=== PATIENT | male | born 1940 | race Caucasian/White ===

== ENCOUNTER 2020-02-03 03:19 | Emergency (ER) | payer MEDICARE, SELFPAY ==
[2020-02-03 03:28] VITALS: BP 184/88; PULSE 101; RESP 18; TEMP 36.5; O2SAT 96; BMI 23.6
[2020-02-03 03:43] VITALS: BP 102/78; PULSE 82; RESP 16; O2SAT 97
--- NOTE | 2020-02-03 03:46 | W.ED.GENADLT ---
HPI - General Adult General: Chief complaint: General Medical Stated complaint: poss obj stuck in throat Time Seen by Provider: 02/03/20 03:22 Source: patient Mode of arrival: ambulatory Limitations: no limitations History of Present Illness: HPI narrative: Mr. Harris is a nice 80-year-old male who comes in complaining of difficulty swallowing. He states that he has had to have his esophagus dilated in the past secondary to this problem. Tonight he feels like he got some food stuck in his throat almost 12 hours ago and he thought it would pass it this is done numerous times in the past. Patient states that he can handle his own secretions but anytime he tries to drink water or anything else it goes down and he feels it come right back up. He denies any chest pain, shortness of breath or other complaint. Associated symptoms: Reports vomiting; Deny chest pain, confusion, diaphoresis, dyspnea, headache(s), malaise, nausea, rash, palpitations or syncope Review of Systems Const: Denies: fever(s), chills, body aches, fatigue, malaise or diaphoresis Eyes: Denies: change in vision, blurry vision, photophobia, eye discomfort, eye discharge, eye redness or yellow eyes ENMT: Denies: throat pain, odynophagia, hoarseness, swelling of lips/tongue, ear or mastoid pain, ear discharge, change in hearing or nasal discharge Card: Denies: chest pain, palpitations, irregular heart rhythm, edema, lightheadedness, syncope, pre-syncope, dyspnea on exertion or orthopnea Resp: Denies: dyspnea, productive cough, non-productive cough, wheezing, hemoptysis or chest congestion GI: Reports: vomiting; Denies: abdominal pain, nausea, hematemesis, coffee ground emesis, heartburn, diarrhea, constipation, GI cramping, hematochezia or melena : Denies: flank pain, dysuria, urinary frequency, urinary urgency or hematuria Musc: Denies: neck pain, back pain, extremity pain, extremity swelling, joint pain, joint swelling, joint redness, joint warmth or joint stiffness Skin/Breast: Denies: rash, pruritus, erythema, skin pain or skin tenderness Neuro: Denies: headache(s), numbness in extremities, weakness in extremities, sensory changes, lack of coordination, difficulty walking, dizziness, vertigo, confusion, Slurred speech present or seizure-like activity Ashish/Lymph: Denies: easy bruising, easy bleeding, petechiae, purpura or enlarged lymph nodes All/Imm: Denies: urticaria, throat swelling, tongue swelling, facial swelling or acute wheezing PFSH ED PFSH: Medical History (Updated 02/03/20 @ 05:21 by Rosa Price) Esophageal stricture History of esophageal dilatation Surgical History (Updated 02/03/20 @ 05:21 by Rosa Price) S/P appendectomy Physical Exam Const: COMMON NORMALS: no acute distress, patient oriented x3, no limitations and alert GENERAL APPEARANCE: cooperative HENMT: COMMON NORMALS: normocephalic, atraumatic, external ears normal, EAC's normal and Normal external nose present HEAD & SCALP: normal to inspection, normocephalic and atraumatic FACE & SINUS: normal facial exam and face symmetric NOSE: Normal external nose present and Normal nares present EXTERNAL EAR: Yes external ears normal EXTERNAL AUDITORY CANAL: EAC's normal MOUTH: Normal oral and palatal mucosa present, lip normal and tongue normal Eye: COMMON NORMALS: Equal, round and reactive pupils present and conjunctivae normal GENERAL EYE: appearance normal, both eyes and all related structures ALIGNMENT: Yes alignment normal PERIORBITAL: periorbital findings normal EYELID: eyelids normal CONJUNCTIVA: Yes conjunctivae normal SCLERA: sclerae normal PUPIL: Yes Equal, round and reactive pupils present Neck/C-Spine: COMMON NORMALS: full ROM, no lymphadenopathy, supple, no meningeal signs and no JVD GENERAL: Yes normal visual inspection and Yes trachea midline Chest: COMMONS NORMALS: normal inspection of the chest and normal palpation of entire chest wall Resp: COMMON NORMALS: normal respiratory effort, No retractions, No use of accessory muscles and clear to auscultation bilaterally EFFORT & INSPECTION: Yes able to speak in complete sentences and Yes symmetric chest movement AUSCULTATION: clear to auscultation bilaterally, no crackles, no rales, no rhonchi and no wheezes Cardio: COMMON NORMALS: no JVD, regular rate, regular rhythm, S1 normal heart sound present, S2 normal heart sound present and No murmurs present (Cardio) RATE: regular rate RHYTHM: regular rhythm HEART SOUNDS: S1 normal heart sound present, S2 normal heart sound present, no click, no gallops, no murmurs and no rubs GI: COMMON NORMALS: Soft to palpation and No hepatosplenomegaly present PALPATION: Yes Soft to palpation, No Tenderness to palpation present (GI), No Guarding due to palpation present (GI), No Rigid due to palpation, Yes No hepatosplenomegaly present, No Hernia present, No Palpable mass present and No Pulsatile mass present : COMMON NORMALS: Yes no CVA tenderness BLADDER/KIDNEY EXAM: Yes no CVA tenderness Back/Pelvis: COMMON NORMALS: no CVA tenderness, thoracic and lumbar spine normal to inspection, no thoracic nor lumbar tenderness and thoraco-lumbar ROM normal Extremity: COMMON NORMALS: normal to inspection, full ROM, capillary refill normal, no joint enlargement, no clubbing, cyanosis or edema and no calf tenderness Neuro: COMMON NORMALS: patient oriented x3, CN's II-XII intact bilaterally, moves all extremities, no focal motor deficits and no sensory deficits noted SENSORIUM/ORIENTATION: Yes alert MENINGEAL SIGNS: Yes no meningeal signs SPEECH: speech normal Psych: COMMON NORMALS: mental status grossly normal, Normal thought process present, cooperative, normal affect, speech normal and activity/motor behavior normal SPEECH: Yes normal speech THOUGHT PROCESS: Normal thought process present Skin: COMMON NORMALS: no rashes or lesions noted, turgor normal, no jaundice, no petechiae and no mottling GENERAL SKIN EXAM: no rashes or lesions noted and turgor normal Course Vital Signs: Vital signs: Vital Signs Temperature 97.7 F 02/03/20 03:28 Pulse Rate 82 02/03/20 05:00 Respiratory Rate 16 02/03/20 05:00 Blood Pressure 103/65 02/03/20 05:00 Pulse Oximetry 97 02/03/20 05:00 MDM - General Adult MDM Narrative: Medical decision making narrative: 05 -after nitroglycerin and Ativan the patient is able to drink without having any vomiting. He says he feels as though everything is passed. Is able to get a ride home so we will discharge him but he understands he will need to follow-up with his regular doctor as he may need a dilation in the future. At this time the patient is feeling much better and would like to be discharged. Imaging Data^: CXR: Attestation: I personally reviewed and interpreted this imaging study as follows: My impression: No acute cardiopulmonary findings. Discharge Plan Discharge Patient Disposition: Home Clinical Impression: Distal esophageal obstruction due to foreign body Condition: Stable Discharge Orders: Discharge Order (Routine); Ordered 02/03/20 Ordered By: Rosa Price Referrals: Soren Tubbs MD [Primary Care Provider] - Discharge Diet: Advance as tolerated Discharge Activity: Increase activity as tolerated Activity Restrictions/Additional Instructions: Please return to the ER immediately for any of the signs or symptoms listed on your discharge instruction sheets, worsening/changing of your symptoms, you are not getting better as quickly as expected, or for ANY other cause or concerns. Return to the ER immediately if you begin to vomit or you feel as though fluids or your own saliva is getting stuck in your esophagus. Be certain to follow-up with your doctor as soon as possible to arrange for an outpatient scope of your esophagus to look for a recurrent obstruction. Coding Level of Care Code ED Smoke Jumper Supervisor for Orestesg Fwd Exam Comprehensive
[2020-02-03] MEDS: nitroglycerin 0.4 mg sublingual Tablet SUBLINGUAL (03:55)
--- NOTE | 2020-02-03 04:00 | XR_ITS ---
WS: [id number] Exam: XR chest 1V portable [id number] Date/Time of Exam: 02/03/2020 4:00 AM Reason For Exam: Esophageal foreign body Findings: Comparison 10/01/2014. The lungs are fully inflated and clear. Normal cardiomediastinal structures. No pleural effusions. Mo derate sized hiatal hernia noted. Regional bony elements are intact. XR/XR chest 1V portable [id number] IMPRESSION: 1. No acute cardiopulmonary finding. 2. Moderate-sized hiatal hernia.
[2020-02-03 04:01] VITALS: BP 132/69; PULSE 82; RESP 17; O2SAT 97
[2020-02-03] MEDS: LORazepam 2 mg/mL INJ 1 mL 1 MG IVP (04:07)
[2020-02-03] MEDS: ondansetron 2 mg/ML SDV 2 mL 4 MG IVP (04:07)
[2020-02-03] MEDS: sodium chloride 0.9% 1,000 ML 100 ML IV (04:08)
[2020-02-03 04:30] VITALS: BP 120/74; PULSE 92; RESP 17; O2SAT 94
[2020-02-03 05:00] VITALS: BP 103/65; PULSE 82; RESP 16; O2SAT 97
--- NOTE | 2020-02-03 05:14 | PC.NURSE ---
Patient able to keep water down.
[2020-02-03 05:28] VITALS: BP 103/65; PULSE 72; RESP 17; TEMP 36.5; O2SAT 99
== END 2020-02-03 05:28 | disposition home or self-care (01) ==
PROVIDERS: Emergency Provider Emergency Medicine; PCP Family Medicine
DX: K22.2 Esophageal obstruction (principal); T18.108A Unspecified foreign body in esophagus causing other injury, initial encounter; X58.XXXA Exposure to other specified factors, initial encounter
CPT/HCPCS: 12345; 71045; 96361; 96374; 96375; 99283; J2060; J2405; J7030

== ENCOUNTER 2024-07-13 07:30 | Day surgery (SDC) | payer MEDICARE, SELFPAY ==
[2024-07-13] VITALS (11 sets, daily range): BP systolic 102–150; BP diastolic 44–82; PULSE 63–97; RESP 16–20; TEMP 36.3–37; O2SAT 94–99; BMI 23.6
--- NOTE | 2024-07-13 07:42 | W.ED.GENADLT ---
HPI - General Adult General: Chief complaint: Airway/Esophagus Foreign Body Stated complaint: food hung in throat Time Seen by Provider: 07/13/24 07:32 Source: patient Mode of arrival: ambulatory Limitations: no limitations History of Present Illness: 84-year-old male who states he is eaten hamburger last night and states he feels like he has some hung up in his throat. He has had some difficulty swallowing even liquids. He states has had this happen before he had a history of strictures and has had dilation in the past. Denies any vomiting or shortness of breath Associated symptoms: Deny chest pain, dyspnea, headache(s), nausea, rash or vomiting Related Data Home Medications ?Medication ?Instructions ?Recorded ?Confirmed fluticasone propionate 50 1 spray intranasal BID 07/13/24 07/13/24 mcg/actuation nasal spray,suspension omeprazole 20 mg tablet,delayed 20 mg PO DAILY stomach 07/13/24 07/13/24 release tamsulosin 0.4 mg capsule 0.4 mg PO DAILY 07/13/24 07/13/24 Allergies Allergy/AdvReac Type Severity Reaction Status Date / Time No Known Allergies Allergy Verified 02/03/20 03:31 Review of Systems Const: Denies: fever(s), chills, body aches or change in appetite ENMT: Denies: throat pain or dental pain Card: Denies: chest pain Resp: Denies: dyspnea GI: Denies: abdominal pain, nausea, vomiting or diarrhea Musc: Denies: neck pain or back pain Skin/Breast: Denies: rash Neuro: Denies: headache(s) PFS ED PFSH: Medical History History of esophageal dilatation Esophageal stricture Surgical History S/P appendectomy Physical Exam Const: COMMON NORMALS: no acute distress, patient oriented x3 and healthy appearing HENMT: COMMON NORMALS: normocephalic and atraumatic HEAD & SCALP: normocephalic and atraumatic Eye: COMMON NORMALS: conjunctivae normal CONJUNCTIVA: Yes conjunctivae normal Neck/C-Spine: COMMON NORMALS: full ROM and supple Chest: COMMONS NORMALS: normal inspection of the chest Resp: COMMON NORMALS: normal respiratory effort, No retractions, No use of accessory muscles and clear to auscultation bilaterally AUSCULTATION: clear to auscultation bilaterally Cardio: COMMON NORMALS: regular rate, regular rhythm and No murmurs present (Cardio) RATE: regular rate RHYTHM: regular rhythm GI: COMMON NORMALS: Normal to inspection, nondistended, normoactive bowel sounds present, Soft to palpation, non-tender and no masses PALPATION: Yes Soft to palpation Extremity: COMMON NORMALS: normal to inspection and full ROM Neuro: COMMON NORMALS: patient oriented x3, moves all extremities and no focal motor deficits Psych: COMMON NORMALS: mental status grossly normal, Normal thought process present and cooperative THOUGHT PROCESS: Normal thought process present Skin: COMMON NORMALS: no rashes or lesions noted and no wounds GENERAL SKIN EXAM: no rashes or lesions noted Course Vital Signs: Vital signs: Vital Signs Temperature 97.4 F L 07/13/24 07:36 Pulse Rate 97 07/13/24 08:15 Respiratory Rate 16 07/13/24 07:36 Blood Pressure 117/82 07/13/24 08:15 Pulse Oximetry 96 07/13/24 08:15 Oxygen Delivery Me thod Room Air 07/13/24 07:36 MDM - General Adult Medical Decision Making Patient presents for an esophageal food impaction he has not been able to clear it here. I spoke to surgery will take the GI lab at this time Medical Records I reviewed the patient's medical records. No radiology studies performed this visit Discharge Plan Discharge Patient Disposition: Admitted As Inpatient Clinical Impression: Food impaction of esophagus Condition: Stable Prescriptions: No Action tamsulosin 0.4 mg capsule 0.4 mg PO DAILY fluticasone propionate 50 mcg/actuation spray,suspension 1 spray INTRANASAL BID omeprazole 20 mg Tablet,Delayed Release (Dr/Ec) 20 mg PO DAILY Referrals: Soren Tubbs MD [Primary Care Provider] - Print Language: Andorran Coding Level of Care Code ED Putty Glazer for Cinda Roque
[2024-07-13] MEDS: glucagon 1 mg/mL KIT 1 mL IM (07:46)
[2024-07-13] MEDS: nitroglycerin 0.4 mg sublingual Tablet SUBLINGUAL (07:48)
--- NOTE | 2024-07-13 08:42 | PM.HP ---
Providers/Chief Complaint Primary Care Provider: Soren Tubbs MD Chief Complaint: food hung in throat History of Present Illness Renato Harris is a 84 year old male Who presents to the hospital with a food bolus impaction. Patient ate a burger yesterday and after that he has not been able to tolerate any liquids and is constantly spitting. No abdominal pain, this happened again about 10 years ago and at that time it resolved with medications. Medications have been Ineffective at this time. Review of Systems General: Reports: 10 or more systems reviewed and unremarkable except in HPI and below Medications/Allergies Home Medications ?Medication ?Instructions ?Recorded ?Confirmed ?Last Taken ?Type fluticasone propionate 50 1 spray intranasal BID 07/13/24 07/13/24 Unknown History mcg/actuation nasal spray,suspension omeprazole 20 mg tablet,delayed 20 mg PO DAILY stomach 07/13/24 07/13/24 07/12/24 History release tamsulosin 0.4 mg capsule 0.4 mg PO DAILY 07/13/24 07/13/24 07/12/24 History Allergies Allergy/AdvReac Type Severity Reaction Status Date / Time No Known Allergies Allergy Verified 02/03/20 03:31 PFSH Acute PFSH: Medical History History of esophageal dilatation Esophageal stricture Surgical History S/P appendectomy Vitals/I&O/Wt Last Vital Signs Temp 97.4 F L 07/13/24 07:36 Pulse 97 07/13/24 08:15 Resp 16 07/13/24 07:36 BP 117/82 07/13/24 08:15 Pulse Ox 96 07/13/24 08:15 O2 Del Method Room Air 07/13/24 07:36 Weight last 48 hrs Weight 165 lb Physical Exam Narrative: General : Patient is well developed , no acute distress, oriented x3 Head : Normal cephalic, a-traumatic. Nose : Mucous membranes are without erythema. Lungs : Equal chest rise bilaterally, no use of accessory muscles, trachea is midline. CV : Rate and rhythm are normal. Abdomen : Soft, ND, NT, no g/r/m Extremities : No edema. Upper extremities are normal bilaterally. Back : non-tender to palpation, no CVA tenderness. A&P Assessment and plan (1) History of esophageal dilatation: (2) Impacted esophageal foreign body: Plan After complete history, physical examination and review of all available clinical data the following is my assessment. Patient will benefit from upper endoscopy with removal of foreign body. I discussed all recent benefits including the risk of perforation requiring surgical intervention transfer to higher level of care. I have explained to the patient that in the case of a foreign body in the esophagus the risk of perforation is higher than with a normal EGD and he understands. I have also explained the risk of bleeding, need for repeat endoscopy. Injury to soft tissue mouth and pharynx and also injury to the teeth. Patient shows understanding agrees to proceed. PDMP PDMP Reviewed: Not Reviewed Attestations Medical Necessity Statement*: Possible discharge after the procedure Coding Level of Care Code Acute Code for Chg Fwd Diagnoses History of esophageal dilatation Z98.890 Impacted esophageal foreign body T18.108A
--- NOTE | 2024-07-13 09:41 | P.ANESASSM_ITS ---
Pre-Anesthetic Assessment Height/Weight: Height 5 ft 10 in Weight 165 lb Temp Pulse Resp BP Pulse Ox O2 Del Method 97.4 F L 85 16 145/69 97 Room Air 07/13/24 07:36 07/13/24 08:57 07/13/24 07:36 07/13/24 08:57 07/13/24 08:57 07/13/24 07:36 Preop Diagnosis: Food bolus Operation Date: 07/13/24 09:00 Proposed Procedures p EGD(Not Applicable) - Han Alonso MD Was Beta Leyla taken within 24 hours: N/A Was Clonidine taken within 24 hours: N/A Social No alcohol and No tobacco Exam alert, oriented x 3, clear to auscultation bilaterally and regular rate & rhythm Airway Submandibular: within normal limits Cervical ROM: within normal limits Mallampati: Class II Comments: Comments: Edentulous Anesthetic Plan ASA status: 2E Anesthesia: General Other: No prior issues with anesthesia Patient has hamburger stuck in his throat from last night. Has been trying to drink water in the ER without much success History of GERD on omeprazole Prior EGD with dilation in the past Patient lives at home and is able to perform ADLs. Takes care of his Plan for GETA with RSI Medications/Allergies Home Medications ?Medication ?Instructions ?Recorded ?Confirmed ?Last Taken ?Type fluticasone propionate 50 1 spray intranasal BID 07/1307/13/24 Unknown History mcg/actuation nasal spray,suspension omeprazole 20 mg tablet,delayed 20 mg PO BID stomach #60 tabs 07/13/24 Unknown Rx release sucralfate 100 mg/mL oral 1 g (10 mL) PO BID 2 weeks # 280 mL 07/13/24 Unknown Rx suspension tamsulosin 0.4 mg capsule 0.4 mg PO DAILY 07/13/2410/0107/12/24 History Allergies Allergy/AdvReac Type Severity Reaction Status Date / Time No Known Allergies Allergy Verified 02/03/20 03:31 [facility] Anesthesia Medical History History of esophageal dilatation Esophageal stricture Surgical History S/P appendectomy Data Anesthesia Cardiac Studies: No Data to Display
--- NOTE | 2024-07-13 10:25 | ANE.PACU2 ---
Inpatient post-anesthesia follow up: Airway intact: Yes Vital signs: Temperature 98.6 F Pulse Rate 63 Respiratory Rate 18 Blood Pressure 114/50 Pulse Oximetry 96 Oxygen Delivery Me thod Room Air Oxygen Flow Rate Fraction of Inspir ed Oxygen Hydration adequate: Yes Nausea and vomiting: No Pain level: 1 Mental status: Baseline
== END 2024-07-13 10:25 | disposition home or self-care (01) ==
LOC: ER 08:24 → GILAB 08:41
PROVIDERS: Emergency Provider Emergency Medicine; PCP Family Medicine; Visit Provider Surgery
PROC: 0DJ08ZZ Inspection of Upper Intestinal Tract, Via Natural or Artificial Opening Endoscopic (ICD-10-PCS; principal; 2024-07-13 09:00)
DX: T18.128A Food in esophagus causing other injury, initial encounter (principal); K29.50 Unspecified chronic gastritis without bleeding; K21.9 Gastro-esophageal reflux disease without esophagitis; W44.F3XA Food entering into or through a natural orifice, initial encounter; K22.2 Esophageal obstruction; Z79.899 Other long term (current) drug therapy
CPT/HCPCS: 43239; 43247; 88305; 88342; 96372; 99285; J0330; J1610; J2704; J9999

== ENCOUNTER → 2024-07-30 11:20 | Outpatient (BNVA) | payer MEDICARE, SELFPAY | PROVIDERS: PCP Family Medicine; Visit Provider Surgery | DX: Z09 Encounter for follow-up examination after completed treatment for conditions other than malignant neoplasm (principal) | CPT/HCPCS: 99214 ==